=== PATIENT | male | born 1945 | race Hispanic/Latino ===

== ENCOUNTER 2021-08-04 06:09 | Day surgery (SDC) | payer MEDICARE ==
[2021-08-04] MEDS ORDERED: SODIUM CHLORIDE 0.9% 500 ML 500 ML IV SCH (07:00)
[2021-08-04 07:11] LABS: Basophils # (Auto) 0.1 K/mm3 (0.0-0.1); Basophils % (Auto) 1.1 % (0.0-1.8); Eosinophils # (Auto) 0.6 K/mm3 (0.0-0.4); Eosinophils % (Auto) 7.5 % (0.0-4.3); Hematocrit 43.5 % (35.5-45.6); Lymphocytes # (Auto) 1.7 K/mm3 (1.2-5.4); Lymphocytes % (Auto) 19.4 % (13.4-35.0); Mean Corpuscular HGB Conc 34 % (32-34); Mean Corpuscular Volume 100 fl (84-94); Monocytes # (Auto) 0.9 K/mm3 (0.0-0.8); Monocytes % (Auto) 10.6 % (0.0-7.3); Platelet Count 173 K/mm3 (140-440); Red Blood Count 4.37 M/mm3 (3.65-5.03); Red Cell Distribution Width 14.1 % (13.2-15.2)
[2021-08-04 07:22] LABS: INR 1.05 (0.87-1.13)
[2021-08-04 07:23] LABS: Partial Thromboplastin Time 34.3 Sec. (24.2-36.6)
[2021-08-04 07:25] LABS: BUN/Creatinine Ratio 16; Blood Urea Nitrogen 16 mg/dL (9-20); Calcium 10.1 mg/dL (8.4-10.2); Hemolysis Index 27
[2021-08-04] MEDS ORDERED: HEPARIN/NS 5000 UNIT/500ML 1,000 ML IR ONE (08:10)
[2021-08-04] MEDS ORDERED: HEPARIN 10,000 UNITS/10 ML VIAL ONE (08:11)
--- NOTE | 2021-08-04 08:31 | Short Stay Summary ---
Short Stay Documentation Date of service: 08/04/21 - History Principal diagnosis: Peripheral vascular disease with claudication Past Medical History: PVD Social history: no significant social history - Allergies and Medications Current Medications: Allergies Penicillins Adverse Reaction (Severe, Unverified 08/11/13 09:31) Rash Home Medications Medication Instructions Recorded Confirmed Last Taken Type Aspirin EC [Halfprin EC] 81 mg PO DAILY 08/04/21 08/04/21 08/04/21 History 81 mg Clopidogrel [Plavix] 75 mg PO DAILY 08/04/21 08/04/21 08/03/21 History 75 mg Finasteride [Proscar] 5 mg PO DAILY 08/04/21 08/04/21 08/04/21 History 5 mg Levothyroxine [Synthroid] 75 mcg PO DAILY 08/04/21 08/04/21 08/04/21 History 75 mcg Losartan [Cozaar] 50 mg PO DAILY 08/04/21 08/04/21 08/04/21 History 50 mg Metoprolol [Lopressor TAB] 0.5 tab PO BID 08/04/21 08/04/21 08/04/21 History 12.5mg Multivitamin/Iron/Folic Acid 1 tab PO DAILY 08/04/21 08/04/21 08/04/21 History [Centrum Adults Tablet] 1 tab Pantoprazole [Protonix TAB] 40 mg PO DAILY 08/04/21 08/04/21 08/04/21 History 40 mg Pravastatin [Pravachol] 40 mg PO DAILY 08/04/21 08/04/21 08/04/21 History 40 mg Tamsulosin [Flomax] 0.4 mg PO DAILY 08/04/21 08/04/21 08/04/21 History 0.4mg cilostazoL [Pletal] 50 mg PO BID 08/04/21 08/04/21 Unknown History Active Medications Sodium Chloride (Nacl 0.9% 500 Ml) 500 mls @ 50 mls/hr IV DIRECT JUANCARLOS Last Admin: 08/04/21 07:56 Dose: 50 mls/hr Documented by: Clindamycin HCl (Cleocin 900 Mg/50 Ml) 900 mg in 50 mls @ 100 mls/hr IV PREOP NR; Protocol Stop: 08/04/21 15:00 - Physical exam General appearance: no acute distress Integumentary: no rash, no growths HEENT: Atraumatic Lungs: Normal air movement Heart: Regular rate Gastrointestinal: normal Male Genitourinary: deferred Rectal Exam: deferred Neurological: Other (Peripheral vascular disease with claudication) - Brief post op/procedure progress note Date of procedure: 08/04/21 Pre-op diagnosis: Peripheral vascular disease with claudication Post-op diagnosis: same Procedure: Bilateral common iliac artery revascularization, left external iliac artery revascularization Anesthesia: local Surgeon: ALANIS MOSS Estimated blood loss: minimal Pathology: none Condition: stable - Disposition Condition at discharge: Good Disposition: 01 HOME / SELF CARE / HOMELESS Short Stay Discharge Plan Activity: advance as tolerated Weight Bearing Status: Weight Bear as Tolerated Diet: regular Wound: keep clean and dry, per your surgeon's advice (keep dressings on until tomorrow morning) Follow up with: PRIMARY MD STEVE [Primary Care Provider] - 7 Days
[2021-08-04] MEDS: LIDOCAINE (2%) 20 MG/1 ML VIAL 20 ML MDV INFILTRATI ONE ×3 (08:58→09:11)
[2021-08-04] MEDS: MIDAZOLAM 2 MG/2 ML INJ ONE ×2 (08:58→09:06)
[2021-08-04] MEDS: fentaNYL 100 MCG/2 ML INJ ONE ×2 (08:58→09:06)
[2021-08-04] MEDS ORDERED: HEPARIN/NS 5000 UNIT/500ML 500 ML IR ONE (09:39)
--- NOTE | 2021-08-04 10:48 | Operative Report ---
Operative Report Operative Report: Exam: Bilateral common iliac artery revascularization, left external iliac artery revascularization Clinical indication: Patient with a history of peripheral vascular disease with claudication Date: 08/04/2021 Procedure: Following an explanation of the risks, benefits and alternatives; written informed consent was obtained. The patient was brought to the angiographic suite and placed in supine position on the examination table. Initial ultrasound evaluation of the groins demonstrated patent common femoral arteries bilaterally. The patient's groins were prepped and draped in the usual sterile fashion. 1% lidocaine was used for anesthesia. Under ultrasound guidance, the right common femoral artery was cannulated with a 7 cm 21-gauge needle. A 0.018 guidewire was advanced centrally. The needle was removed and a microsheath placed. The 0.018 guidewire was exchanged for a 0.035 guidewire and the micro sheath exchanged for a 5 [place] vascular sheath. Access to the left groin was obtained in a similar fashion and a second 5 [place] sheath placed. An Omni Flush catheter was then advanced over the guidewire through the right sheath to the distal abdominal aorta. Contrast was injected and imaging obtained in multiple projections. This demonstrates significant 60 to 70% stenosis bilaterally within the common iliac arteries extending into the distal abdominal aorta. On the left, there is 70 to 80% stenosis at the origin of the external iliac artery. The 5 [place] sheath was exchanged for a 7 [place] 11 cm sheath in the left. A vertebral catheter was advanced over the guidewire through the sheath in the left groin. The 035 guidewire was exchanged for an 014 guidewire and the vertebral catheter removed. Intravascular ultrasound was then performed from the common iliac artery to the sheath insertion site in the common femoral artery. Imaged vessels include the left common iliac artery, left external iliac artery and left common femoral artery. There is near catheter other occlusive stenosis within the left external iliac artery just distal to its origin. The intravascular ultrasound catheter was removed and the 014 guidewire exchanged for an 035 guidewire over the vertebral catheter. Treatment was performed first in the left external iliac artery. An 8 mm x 29mm Victoria VBX stent was advanced and deployed from the origin of the left external iliac artery until the proximal external iliac artery. Post deployment imaging demonstrated reduction of the stenosis with residual less than 10% stenosis. At this point, attention was then turned to the common iliac artery stenosis and distal abdominal aortic stenosis. Guidewires were advanced and the right sheath exchanged for a 7 [place] 11 cm sheath. Additional angiography was performed for anatomic localization and measurements taken. Decision was made to treat the distal abdominal aortic lesion and bilateral common iliac artery lesions using kissing Victoria VBX stents. On the right, a 7 mm x 79 mm VBX stent was placed. On the left, a 7 mm x 59 mm VBX stent was placed. The stents were insufflated to nominal atmospheres on both sides. Post stent placement imaging demonstrated reduction of the stenoses within the distal abdominal aorta and bilateral common iliac artery to less than 10%. Brisk flow is present from the distal abdominal aorta to the sheath insertion starts bilaterally. The guidewires, catheters and sheaths were removed and hemostasis achieved in bilateral groins using 6 [place] Angio-Seal arterial closure device and compression. Compression dressings were placed. The patient tolerated the procedure well. There were no immediate postprocedure complications. Conscious sedation was performed under the guidance of radiologic nursing. Continuous cardiopulmonary monitoring was utilized. Impression: 1) Aortogram and pelvic angiography demonstrating stenosis involving the distal abdominal aorta, bilateral common iliac arteries and left external iliac artery as previously noted. 2) Treatment of the left external iliac artery stenosis using a 8 mm x 29 mm VBX stent. 3) Treatment of the distal abdominal aortic stenosis and bilateral common iliac artery stenosis using kissing 7 mm VBX stents. On the left, a 7 x 59 was placed. On the right, a 7 x 79 was placed. Post intervention imaging demonstrated brisk flow from the abdominal aorta to the sheath insertion sites bilaterally.
[2021-08-04] MEDS ORDERED: ONDANSETRON 4 MG/2 ML INJ ONE (12:04)
[2021-08-04] MEDS ORDERED: ONDANSETRON 4 MG/2 ML INJ IV ONE (13:00)
[2021-08-04 13:12] VITALS: BP 137/66
== END 2021-08-04 14:05 | disposition home or self-care (01) ==
LOC: CATHLABREC 06:09
PROVIDERS: ATTEND Radiology Diagnostic Radiology
DX: I70.213 Atherosclerosis of native arteries of extremities with intermittent claudication, bilateral legs (principal); I10 Essential (primary) hypertension; E78.00 Pure hypercholesterolemia, unspecified; E03.9 Hypothyroidism, unspecified; M19.90 Unspecified osteoarthritis, unspecified site; Z79.82 Long term (current) use of aspirin; Z79.899 Other long term (current) drug therapy; Z98.890 Other specified postprocedural states
CPT/HCPCS: 36415; 37221; 37223; 37252; 37253; 75625; 76937; 80048; 82962; 85025; 85610; 85730; C1753; C1760; C1769; C1874; C1887; C1894; J1644; J2250; J2405; J3010; J7040; Q9967